=== PATIENT | female | born 1955 | race Caucasian/White ===

== ENCOUNTER 2020-11-04 21:50 | Emergency (ER) | payer MEDICARE, OTHER ==
--- NOTE | 2020-11-04 22:32 | ED Physician Documentation ---
PD HPI LOWER EXT INJURY - Stated complaint Stated Complaint: LT FOOT INJ - Chief complaint Chief Complaint: Laceration - History obtained from History obtained from: Patient - History of Present Illness PD HPI LOW EXT INJURY LOCATION: Left, Ankle Type of injury: Laceration Where injury occurred: Work Timing - onset: Enter time (1100), Today Timing - duration: Hours Timing - details: Abrupt onset, Still present Improved by: Rest Worsened by: Moving, Palpating Associated symptoms: Swelling, Discolored. No: Weakness, Numbness, Tingling Contributing factors: No: Anticoagulated Similar symptoms before: Diagnosis (leg infection with sepsis) Recently seen: Not recently seen - Additional information Additional information: Previously well 65-year-old female who works at [employer] for the past 30 years was jumping into a recycle enrique to crush down the contents and she cut her ankle on a tin can. She continued work and throughout the day she has had increasing pain and now she is concerned about infection. She is having enough pain with this that she is limping. She does not have fever she does not have lymphangitic streaking she does not have drainage and she is been able to control the bleeding.She is not up-to-date on her tetanus. Review of Systems Constitutional: denies: Fever Ears: denies: Ear pain Nose: denies: Congestion Throat: denies: Sore throat Cardiac: denies: Chest pain / pressure Respiratory: denies: Dyspnea, Cough GI: denies: Abdominal Pain, Nausea, Vomiting, Constipation, Diarrhea : denies: Dysuria, Frequency Skin: reports: Laceration (s). denies: Rash Musculoskeletal: reports: Extremity pain, Extremity swelling. denies: Neck pain, Back pain Neurologic: denies: Generalized weakness, Focal weakness, Numbness PD PAST MEDICAL HISTORY - Past Medical History Past Medical History: No - Past Surgical History Past Surgical History: Yes /SPA DIRECTOR: section - Present Medications Home Medications: Ambulatory Orders Medication Instructions Recorded Confirmed Sulfamethox/Trimeth 800/160 1 each PO BID #14 tablet 11/04/20 [Bactrim Ds] - Allergies Allergies/Adverse Reactions: Allergies Allergy/AdvReac Type Severity Reaction Status Date / Time No Known Drug Allergies Allergy Verified 11/04/20 22:10 - Social History Does the pt smoke?: No Smoking Status: Never smoker Does the pt drink ETOH?: No Does the pt have substance abuse?: No - Immunizations Immunizations are current?: No Immunizations: TDAP >10years/unknown - POLST Patient has POLST: No PD ED PE NORMAL - Vitals Vital signs reviewed: Yes - General General: Alert and oriented X 3, No acute distress, Well developed/nourished - HEENT HEENT: Atraumatic, PERRL, EOMI - Respiratory Respiratory: No respiratory distress - Derm Derm: Normal color, Warm and dry, No rash - Extremities Extremities: No deformity, Other (There is a 2 cm superficial laceration that does not penetrate through the entire dermis on the medial aspect of the left ankle. Just above the malleolus. There is significant tenderness associated with this there is no drainage there is mild erythema surrounding it. ) - Neuro Neuro: Alert and oriented X 3, fur tailor 2-12 intact, No motor deficit, No sensory deficit, Normal speech Eye Opening: Spontaneous Motor: Obeys Commands Verbal: Oriented GCS Score: 15 - Psych Psych: Normal mood, Normal affect Results - Vitals Vitals: Vital Signs - 24 hr 11/04/20 11/04/20 22:05 23:15 Temperature 36.1 C L 36.5 C Heart Rate 75 73 Respiratory 16 16 Rate Blood Pressure 119/62 114/62 O2 Saturation 100 100 Oxygen O2 Source Room air PD MEDICAL DECISION MAKING - ED course Complexity details: reviewed old records, considered differential, d/w patient, d/w family ED course: 65-year-old female out to [employer] the [place] jumping into a recycle bin in [facility] [employer] is lacerated her ankle. The laceration itself is superficial and does not require suturing there is no foreign material in the laceration. The area is tender and there are 2 other areas of superficial abrasion that appear older and appears superficially infected as well. These areas are tender but not nearly as tender as the site of the laceration. The wounds are cleansed and dressed the patient is given a tetanus booster and placed onto Septra. Departure - Departure Disposition: 01 Home, Self Care Clinical Impression: Laceration of left lower leg with infection Qualifiers: Encounter type: initial encounter Qualified Code(s): S81.812A - Laceration without foreign body, left lower leg, initial encounter Condition: Stable Instructions: ED Laceration Infec Not Sutrd Follow-Up: Your, doctor [Other] Prescriptions: Sulfamethox/Trimeth 800/160 [Bactrim Ds] 1 each PO BID #14 tablet Comments: The laceration to your ankle appears to be superficially infected and the expec tation is that with treatment the pain and swelling will improve. If for some reason this worsens despite the treatment of follow-up with your primary care doctor or return to the emergency department is in recommended. Discharge Date/Time: 11/04/20 23:15
[2020-11-04] MEDS ORDERED: SULFAM/TRIM 800/160 Prepack 2 PO ONE (22:44)
[2020-11-04] MEDS ORDERED: TETANUS/DIPHTHERIA/PERTUSSIS 0.5 ML SYRINGE IM ONE (22:46)
[2020-11-04 23:23] VITALS: BP 114/62
== END 2020-11-04 23:15 | disposition home or self-care (01) ==
LOC: ED 21:50
DX: S91.012A Laceration without foreign body, left ankle, initial encounter (principal); W26.8XXA Contact with other sharp object(s), not elsewhere classified, initial encounter; Y93.39 Activity, other involving climbing, rappelling and jumping off; Y92.29 Other specified public building as the place of occurrence of the external cause; Y99.0 Civilian activity done for income or pay; Z23 Encounter for immunization
CPT/HCPCS: 90471; 99283; 99284

== ENCOUNTER 2023-11-02 12:10 | Outpatient (CLI) | payer MEDICARE ==
--- NOTE | 2023-11-02 16:08 | XRAY Report ---
PROCEDURE: Foot 3+V RT INDICATIONS: CONTUSION OF RIGHT FOOT TECHNIQUE: 3 views of the foot were acquired. COMPARISON: None. FINDINGS: Bones: No acute fractures or dislocations seen. Soft tissues: Achilles tendon appears unremarkable. No radiopaque foreign body seen. IMPRESSION: No acute osseous abnormality. Reviewed by: Lorenzo Dela Cruz MD on 11/02/2023 4:06 PM PDT Approved by: Lorenzo Dela Cruz MD on 11/02/2023 4:06 PM PDT Station ID: [id number]
== END 2023-11-02 12:20 | disposition home or self-care (01) ==
LOC: DI.N 12:10
PROVIDERS: ATTEND Family Medicine
DX: S90.31XA Contusion of right foot, initial encounter (principal)